=== PATIENT | male | born 1985 ===

== ENCOUNTER 2016-12-05 18:59 | Emergency (ER) | payer SELFPAY ==
[2016-12-05] MEDS ORDERED: NS 0.9% 1000 ML* 1,000 ML IV ONE (19:26)
--- NOTE | 2016-12-05 20:02 | RAD ---
INDICATION: Weakness. COMPARISON: There are no prior studies available for comparison. TECHNIQUE: A portable view of the chest was obtained. FINDINGS: Cardiac and mediastinal contours appear to be within normal limits. The lungs are clear. No pleural effusion is seen. IMPRESSION: NO EVIDENCE FOR ACUTE DISEASE.
[2016-12-05 20:40] LABS: Hematocrit 48 % (42-52); Hemoglobin 16.3 g/dl (14.0-18.0); Mean Corpuscular HGB Conc 34 g/dl (31-36); Mean Corpuscular Hemoglobin 31 pg (27-31); Mean Corpuscular Volume 90 fL (80-94); Mean Platelet Volume 8 um3 (7.4-10.4); Red Blood Count 5.28 10^6/ul (4.0-5.4); Red Cell Distribution Width 13 % (10.5-15); White Blood Count 7.3 10^3/ul (3.5-10.8)
[2016-12-05 20:46] LABS: ALT 100 U/L (7-52); AST 47 U/L (13-39); Albumin 4.5 g/dL (3.2-5.2); Alkaline Phosphatase 94 U/L (34-104); Anion Gap 6 mmol/L (2-11); BUN/Creatinine Ratio 15.4 (8-20); Blood Urea Nitrogen 12 mg/dL (6-24); C Reactive Protein < 1.00 mg/L (< 5.00); CO2 Carbon Dioxide 27 mmol/L (22-32); Calcium 9.7 mg/dL (8.6-10.3); Chloride 101 mmol/L (101-111); EGFR African American 150.3 (>60); EGFR Non-African American 116.9 (>60); Globulin 3.5 g/dL (2-4); Glucose 101 mg/dL (70-100); Lipase 36 U/L (11.0-82.0); Potassium 3.7 mmol/L (3.5-5.0); Sodium 134 mmol/L (133-145)
[2016-12-05 21:24] LABS: Urine Bilirubin Negative (Negative); Urine Glucose Negative (Negative); Urine Nitrite Negative (Negative)
[2016-12-05 21:30] LABS: Mono Internal Control QC Line Present
[2016-12-05 21:50] LABS: TSH (Thyroid Stimulating Horm) 1.79 mcIU/mL (0.34-5.60)
[2016-12-05 21:53] VITALS: BP 165/94
--- NOTE | 2016-12-06 11:18 | ED ---
Alexis Ramirez Billy, scribed for Aniceto Gonzales MD on 12/05/16 at 1929 . Complex/Multi-Sys Presentation - HPI Summary HPI Summary: Patient is a 31 year-old male coming to [facility] presenting with intermittent weakness, fatigue, and headache for the last several weeks. He states that he will often feel hungry and his symptoms are improved with food. He also states that he has intermittent increased urinary frequency. Denies any incidence of chest pain, SOB, palpitations, neck pain, photophobia. FHx of diabetes in the mother. Patient states he is otherwise healthy. - History Of Current Complaint Chief Complaint: ED Time Seen by Provider: 12/05/16 19:16 Hx Obtained From: Patient Onset/Duration: Gradual Onset, Lasting Weeks, Still Present Timing: Intermittent, Lasting: Severity Currently: Moderate Severity Initially: Moderate Aggravating Factor(s): none Alleviating Factor(s): food Associated Signs And Symptoms: Positive: Weakness, Headache, Other - fatigue, hunger, urinary frequency. Negative: SOB, Chest Pain, Palpitations, Fever PMH/Surg Hx/FS Hx/Imm Hx Endocrine/Hematology History: Denies: Hx Diabetes Cardiovascular History: Denies: Hx Hypertension Infectious Disease History: No Infectious Disease History: Denies: Traveled Outside the [place] in Last 30 Days - Family History Known Family History: Positive: Diabetes - Social History Alcohol Use: None Hx Substance Use: No Substance Use Type: Reports: None Hx Tobacco Use: No Smoking Status (MU): Never Smoked Tobacco Review of Systems Positive: Fatigue. Negative: Fever, Chills Negative: Palpitations, Chest Pain Negative: Shortness Of Breath Positive: Other - hunger Positive: frequency Positive: Headache, Weakness All Other Systems Reviewed And Are Negative: Yes Physical Exam - Summary Physical Exam Summary: VITAL SIGNS: Reviewed. GENERAL: Patient is a well developed and nourished male who is lying comfortable in the stretcher. Patient is not in any acute respiratory distress. HEAD AND FACE: No signs of trauma. No ecchymosis, hematomas or skull depressions. No sinus tenderness. EYES: PERRLA, EOMI x 2, No injected conjunctiva, no nystagmus. EARS: Hearing grossly intact. Ear canals and tympanic membranes are within normal limits. MOUTH: Oropharynx within normal limits. NECK: Supple, trachea is midline, no adenopathy, no JVD, no carotid bruit, no c- spine tenderness, neck with full ROM. CHEST: Symmetric, no tenderness at palpation LUNGS: Clear to auscultation bilaterally. No wheezing or crackles. CVS: Regular rate and rhythm, S1 and S2 present, no murmurs or gallops appreciated. ABDOMEN: Soft, non-tender. No signs of distention. No rebound no guarding, and no masses palpated. Bowel sounds are normal. EXTREMITIES: FROM in all major joints, no edema, no cyanosis or clubbing. NEURO: Alert and oriented x 3. No acute neurological deficits. Speech is normal and follows commands. SKIN: Dry and warm Triage Information Reviewed: Yes Vital Signs On Initial Exam: Initial Vitals Temp Pulse Resp BP Pulse Ox 99.0 F 104 16 156/93 99 12/05/16 19:06 12/05/16 19:06 12/05/16 19:06 12/05/16 19:06 12/05/16 19:06 Vital Signs Reviewed: Yes Diagnostics - Vital Signs Vital Signs Temp Pulse Resp BP Pulse Ox 12/05/16 19:06 99.0 F 104 16 156/93 99 - Laboratory Result Diagrams: 12/05/16 20:25 12/05/16 20:25 Lab Statement: Any lab studies that have been ordered have been reviewed, and results considered in the medical decision making process. - Radiology CXR Xray Interpretation: No Acute Changes Radiology Interpretation Completed By: Yazmin Burleson Multi-Symp Course/Dx Assessment/Plan: Patient is a 31 year-old male coming to [facility] presenting with intermittent weakness, fatigue, and headache for the last several weeks. He states that he will often feel hungry and his symptoms are improved with food. He also states that he has intermittent increased urinary frequency. Denies any incidence of chest pain, SOB, palpitations, neck pain, photophobia. FHx of diabetes in the mother. Patient states he is otherwise healthy. Bloodwork WNL except for increased lymphocytes, increased AST and ALT. UA is negative. Monoscreen is negative. Influenza A and B are negative. CXR is negative for acute pathology. In the ED course, pt was hydrated. Possibly, he is having a viral infection. Therefore, at this point, he will be discharged home to follow up with PCP. I sent bloodwork to check hepatic panel, and I am going to send, also, IGE and IGM for Storm-collins virus, and it will be followed up by PCP. At this point, he is feeling better after hydration and will be discharged home to follow up with PCP. A&Ox3, hemodynamically stable. I discussed all the findings and test results with the patient. Patient was instructed to return to the emergency room immediately if any of the symptoms return or worsens. Plan of care was discussed with the patient and understands and agrees. All questions were answered at patient satisfaction. There were no further complaints or concerns. Lung exam before discharge: CTA B/L. Good air exchange. No wheezing or crackles heard. CVS: S1 and S2 present. No murmurs appreciated. Patient is alert and oriented x 3. Patient is hemodynamically stable. Patient will be discharged home with follow up attorney in the next 2-3 days - Diagnoses Provider Diagnoses: Viral syndrome Discharge - Discharge Plan Condition: Stable Disposition: HOME Patient Education Materials: Viral Syndrome (ED) Print Language: YORUBA Referrals: [facility] [Outside] The documentation as recorded by the Alexis castillo Billy accurately reflects the service I personally performed and the decisions made by me, Aniceto Gonzales MD.
[2016-12-07 15:02] LABS: EBV Capsid Ag IgG Ab Positive (Negative); EBV Capsid Ag IgM Ab Negative (Negative)
== END 2016-12-05 21:53 | disposition home or self-care (01) ==
LOC: ED 18:59
DX: B34.9 Viral infection, unspecified (principal)
CPT/HCPCS: 36415; 71010; 80053; 80074; 81003; 83690; 83880; 84443; 85025; 86140; 86308; 86664; 86665; 87502; 99282